=== PATIENT | male | born 1975 | race Caucasian/White ===

== ENCOUNTER 2017-07-27 20:18 | Emergency (ER) | payer MEDICAID, OTHER ==
[~2017-07-27] VITALS: Ht 167.6 cm; Wt 72.5 kg
[2017-07-27 20:41] VITALS: Ht 167.6 cm; Wt 72.5 kg
--- NOTE | 2017-07-28 01:54 | ERD ---
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 Unable to remove HPI 41-year-old male presents to emergency department for complaints of right thigh pain for a wood splinter went inside it and punctured it 5 hours prior to arrival. Patient's complaint of pain sharp pain 4/10 scale, as was upon touching the area. Feels that there is a foreign body in the thigh. Patient denies any fever chills. Patient denies taking any medications to help with symptoms. ROS All systems reviewed and are negative except as per history of present illness. Medications Home Meds Reported Medications [none] Unknown Strength No Conflict Check 07/28/17 Allergies Allergies: Coded Allergies: No Known Allergy (Unverified , 07/27/17) PMhx/Soc Medical and Surgical Hx: pt denies Medical Hx, pt denies Surgical Hx History of Surgery: No Anesthesia Reaction: No Hx Neurological Disorder: No Hx Respiratory Disorders: No Hx Cardiac Disorders: No Hx Psychiatric Problems: No Hx Miscellaneous Medical Probl: No Hx Alcohol Use: No Hx Substance Use: No Hx Tobacco Use: No Smoking Status: Never smoker FmHx Family History: No coronary disease, No diabetes, No other Physical Exam Vitals Vital Signs Date Time Temp Pulse Resp B/P Pulse Ox O2 Delivery O2 Flow Rate FiO2 07/27/17 20:41 98.2 82 18 131/85 98 Physical Exam GENERAL: The patient is well developed and appropriate for usual state of health, in no apparent distress. CHEST: Clear to auscultation bilaterally. There are no rales, wheezes or rhonchi. HEART: Regular rate and rhythm. No murmurs, clicks, rubs or gallops. No S3 or S4. ABDOMEN: Soft, nontender and nondistended. Good bowel sounds. No rebound or guarding. No gross peritonitis. No gross organomegaly or masses. No Philip sign or McBurney point tenderness. BACK: No midline or flank tenderness. EXTREMITIES: Equal pulses bilaterally. There is no peripheral clubbing, cyanosis or edema. No focal swelling or erythema. Full range of motion. Grossly neurovascularly intact. NEURO: Alert and oriented. Cranial nerves 2-12 intact. Motor strength in all 4 extremities with 5/5 strength. Sensation grossly intact. Normal speech and gait. SKIN: A puncture wound on the right thigh area, with tenderness on palpation, no palpable foreign body. There is no apparent rash or petechia. The skin is warm and dry. HEMATOLOGIC AND LYMPHATIC: There is no evidence of excessive bruising or lymphedema. No gross cervical, axillary, or inguinal lymphadenopathy. Results 24 hrs Current Medications Medications (Trade) Dose Ordered Sig/Deena Route PRN Reason Start Time Stop Time Status Last Admin Dose Admin Diphtheria/ Tetanus/Acell Pertussis (Adacel) 0.5 ml ONCE ONCE IM* 07/28/17 02:00 07/28/17 02:01 DC 07/28/17 01:52 Cefazolin Sodium (Ancef) 1 gm ONCE ONCE IM 07/28/17 02:00 07/28/17 02:01 DC 07/28/17 01:52 Tdap was given to prevent tetanus. Patient tolerated medication well. Ancef was given to prevent infection of affected area. PROCEDURE: Ultrasound soft tissue CLINICAL INDICATION: Evaluate for wood foreign body right knee region TECHNIQUE: Ultrasound of the area of injury and interest in the right knee region was performed. COMPARISON: None available FINDINGS: No echogenic structure suggestive of a foreign body is seen in the soft tissues in the area of injury/interest in the right knee region. IMPRESSION: No echogenic structure suggestive of a foreign body is seen in the soft tissues in the area of injury/interest in the right knee region. RPTAT: ANABELL Signed By: Sergio Hernandez M.d 07/28/2017 3:59:29 AM Procedures/MDM Medical decision making: Patient symptoms was likely is consistent with a puncture wound on the right thigh, no foreign body noted. No palpable foreign body. No symptoms of any abscess at this time. No symptoms of any neurovascular compromise. Prescription was given for Keflex to prevent infection, ibuprofen for pain, is advised to follow-up with primary care doctor in 2-3 days for reevaluation of symptoms. Patient was advised to return to emergency department for any worsening symptoms. Disposition: Home. Stable. Departure Diagnosis: Primary Impression: Puncture wound Condition: Stable Patient Instructions: Puncture Wound, General LI CHOUDHARY NP Jul 28, 2017 01:54
[2017-07-28] MEDS ORDERED: CEFAZOLIN 1 GM INJ IM ONE (02:00)
[2017-07-28] MEDS ORDERED: DIPHTH/TET/ACEL PERTUSS (ADULT) 0.5 ML VIAL IM* ONE (02:00)
[2017-07-28] MEDS ORDERED: CEPH-443 PO (04:38)
[2017-07-28] MEDS ORDERED: IBUP-1542 PO (04:38)
--- NOTE | 2017-07-28 08:39 | RADRPT ---
PROCEDURE: Ultrasound soft tissue CLINICAL INDICATION: Evaluate for wood foreign body right knee region TECHNIQUE: Ultrasound of the area of injury and interest in the right knee region was performed. COMPARISON: None available FINDINGS: No echogenic structure suggestive of a foreign body is seen in the soft tissues in the area of injur y/interest in the right knee region. IMPRESSION: No echogenic structure suggestive of a foreign body is seen in the soft tissues in the area of injur y/interest in the right knee region. RPTAT: HJES .Sergio Hernandez MD, MD Date Time Electronically viewed and signed by .Sergio Hernandez MD, on 07/28/2017 03:59 .S/
== END 2017-07-28 05:00 | disposition home or self-care (01) ==
LOC: FTE 20:18
DX: S81.031A Puncture wound without foreign body, right knee, initial encounter (principal); W45.8XXA Other foreign body or object entering through skin, initial encounter; Y92.9 Unspecified place or not applicable; Z23 Encounter for immunization
CPT/HCPCS: 76536; 90471; 90715; 96372; J0690; Z7502